=== PATIENT | female | born 2000 | race Caucasian/White ===

== ENCOUNTER 2021-02-28 15:09 | Emergency (ER) | payer SELFPAY ==
[2021-02-28 15:23] VITALS: BP 103/55; PULSE 80; TEMP 98.5; BMI 26.4
[2021-02-28] MEDS ORDERED: ACETAMINOPHEN 500 MG TABLET (FP) PO ONE (15:43)
[2021-02-28] MEDS ORDERED: ACETAMINOPHEN 500 MG TABLET (FP) ONE (16:09)
[2021-02-28 17:10] LABS: BASO % 0.2 % (0-2.0); EOS % 1.1 % (0-4.5); HEMATOCRIT 39.2 % (32.4-45.2); HEMOGLOBIN 13.5 GM/dL (10.7-15.3); LYMPH % 21.7 % (8-40); MCH 30.2 pg (25.7-33.7); MCHC 34.5 g/dl (32.0-36.0); MEAN CELL VOLUME 87.6 fl (80-96); MONO % 7.2 % (3.8-10.2); NEUT % 69.8 % (42.8-82.8); PLATELET COUNT 177 10^3/uL (134-434); RBC 4.47 M/mm3 (3.60-5.2); RDW 14.6 % (11.6-15.6); WHITE BLOOD COUNT 8.2 K/mm3 (4.0-10.0)
[2021-02-28 17:31] LABS: CALCIUM 9.1 mg/dL (8.5-10.1)
[2021-02-28 17:32] LABS: ALBUMIN 3.6 g/dl (3.4-5.0); BLOOD UREA NITROGEN 5.8 mg/dL (7-18)
[2021-02-28 17:35] LABS: CREATININE 0.7 mg/dL (0.55-1.3)
[2021-02-28 17:36] LABS: BILIRUBIN,TOTAL 0.2 mg/dL (0.2-1); TOT PROT 7.3 g/dl (6.4-8.2)
[2021-02-28 18:20] LABS: PH,URINE >= 9.0 (5.0-8.0); URINE APPEARANCE CLEAR; URINE BILIRUBIN NEGATIVE (NEGATIVE); URINE COLOR YELLOW; URINE GLUCOSE (UA) NEGATIVE (NEGATIVE); URINE KETONE NEGATIVE (NEGATIVE); URINE LEUK ESTERASE NEGATIVE (NEGATIVE); URINE NITRITE NEGATIVE (NEGATIVE); URINE PROTEIN NEGATIVE (NEGATIVE); URINE UROBILINOGEN 0.2 mg/dL (0.2-1.0)
[2021-02-28] MEDS ORDERED: AZITHROMYCIN 500 MG TABLET PO ONE (18:36)
[2021-02-28] MEDS ORDERED: cefTRIAXone SODIUM 1 GM VIAL ONE (18:55)
[2021-02-28] MEDS ORDERED: AZITHROMYCIN 250 MG TABLET ONE (18:56)
== END 2021-02-28 19:00 | disposition home or self-care (01) ==
LOC: JER 15:09
DX: O26.851 Spotting complicating pregnancy, first trimester (principal); Z3A.01 Less than 8 weeks gestation of pregnancy
CPT/HCPCS: 36415; 76815-TC; 76817-TC; 80053; 81003; 84702; 85025; 86850; 86900; 86901; 87086; 87491; 87591; 99285-25

== ENCOUNTER 2021-06-10 18:20 | Emergency (ER) | payer OTHER ==
[2021-06-10 18:42] VITALS: BP 97/51; PULSE 75; TEMP 97.2; BMI 31.2
[2021-06-10] MEDS ORDERED: SODIUM CHLORIDE 0.9% 500 ML INFUS.BAG IV ONE (19:42)
[2021-06-10] MEDS ORDERED: PYRIDOXINE HCL (B-6) 100 MG TABLET PO ONE (19:44)
[2021-06-10] MEDS ORDERED: PROMETHAZINE HCL 25 MG TABLET PO ONE (19:45)
[2021-06-10] MEDS ORDERED: MAG HYDROX/AL HYDROX/SIMETH 30 ML UNIT-DOSE CUP PO ONE (19:46)
[2021-06-10] MEDS ORDERED: ACETAMINOPHEN 500 MG TABLET (FP) PO ONE (19:53)
[2021-06-10] MEDS ORDERED: LACTATED RINGERS SOLUTION 1000 ML INFUS.BAG IV ONE (19:58)
[2021-06-10] MEDS ORDERED: ACETAMINOPHEN 325 MG TABLET (FP) ONE (20:12)
[2021-06-10] MEDS ORDERED: PROMETHAZINE HCL 25 MG/1 ML VIAL ONE (20:13)
[2021-06-10] MEDS ORDERED: MAG HYDROX/AL HYDROX/SIMETH 30 ML UNIT-DOSE CUP ONE (20:14)
[2021-06-10 20:16] LABS: BASO % 0.3 % (0-2.0); EOS % 1.6 % (0-4.5); HEMATOCRIT 38.8 % (32.4-45.2); HEMOGLOBIN 13.4 GM/dL (10.7-15.3); LYMPH % 25.4 % (8-40); MCHC 34.5 g/dl (32.0-36.0); MEAN CELL VOLUME 89.9 fl (80-96); MONO % 8.6 % (3.8-10.2); NEUT % 64.1 % (42.8-82.8); PLATELET COUNT 191 10^3/uL (134-434); RBC 4.32 M/mm3 (3.60-5.2); RDW 13.9 % (11.6-15.6)
[2021-06-10 20:18] LABS: EPI CELLS 34 /uL (0-25.1); HYALINE CASTS 3 /uL (0-3.1); URINE APPEARANCE TURBID; URINE BACTERIA 2386 /uL (0-1359); URINE BILIRUBIN NEGATIVE (NEGATIVE); URINE COLOR YELLOW; URINE GLUCOSE (UA) NEGATIVE (NEGATIVE); URINE KETONE NEGATIVE (NEGATIVE); URINE LEUK ESTERASE 1+ (NEGATIVE); URINE NITRITE NEGATIVE (NEGATIVE); URINE PROTEIN NEGATIVE (NEGATIVE); URINE RBC 7 /uL (0-23.9); URINE WBC 43 /uL (0-25.8)
[2021-06-10] MEDS ORDERED: PROMETHAZINE HCL 25 MG/1 ML VIAL IM ONE (20:21)
[2021-06-10 20:39] LABS: ALBUMIN 3.2 g/dl (3.4-5.0); BLOOD UREA NITROGEN 6.5 mg/dL (7-18); CALCIUM 8.7 mg/dL (8.5-10.1)
[2021-06-10 20:43] LABS: CREATININE 0.6 mg/dL (0.55-1.3)
[2021-06-10 20:44] LABS: BILIRUBIN,TOTAL 0.2 mg/dL (0.2-1)
[2021-06-10] MEDS ORDERED: CEPHALEXIN MONOHYDRATE 500 MG CAPSULE (UD) PO ONE ×2 (20:44→21:08)
[2021-06-10] MEDS ORDERED: PYRIDOXINE HCL (B-6) 50 MG TABLET (FP) PO ONE (20:45)
[2021-06-10] MEDS ORDERED: CEPHALEXIN MONOHYDRATE 500 MG CAPSULE (UD) ONE (21:28)
== END 2021-06-10 22:59 | disposition home or self-care (01) ==
LOC: JER 18:20
PROC: 3E023GC Introduction of Other Therapeutic Substance into Muscle, Percutaneous Approach (ICD-10-PCS; principal; 2021-06-10)
DX: R10.13 Epigastric pain (principal); R11.2 Nausea with vomiting, unspecified
CPT/HCPCS: 36415; 76705-TC; 80053; 81003; 85025; 87086; 93005; 93010; 99285-25; C9803; U0003; U0005

== ENCOUNTER 2021-08-16 14:21 | Emergency (ER) | payer OTHER ==
[2021-08-16 14:47] VITALS: TEMP 97.7; BMI 23.9
[2021-08-16] MEDS ORDERED: SODIUM CHLORIDE 0.9% 500 ML INFUS.BAG IV ONE (15:14)
[2021-08-16] MEDS ORDERED: ONDANSETRON 4 MG/2 ML VIAL IVPUSH ONE (15:14)
[2021-08-16 16:53] VITALS: BP 102/59; PULSE 65
== END 2021-08-16 17:16 | disposition home or self-care (01) ==
LOC: JER 14:21
DX: O21.9 Vomiting of pregnancy, unspecified (principal); Z3A.38 38 weeks gestation of pregnancy
CPT/HCPCS: 99283-25

== ENCOUNTER 2022-08-21 19:51 | Emergency (ER) | payer OTHER ==
[2022-08-21 20:04] VITALS: BMI 27.4
[2022-08-21 20:38] LABS: PH,URINE 7.5 (5.0-8.0); URINE APPEARANCE TURBID; URINE BILIRUBIN NEGATIVE (NEGATIVE); URINE COLOR YELLOW; URINE GLUCOSE (UA) NEGATIVE (NEGATIVE); URINE KETONE NEGATIVE (NEGATIVE); URINE LEUK ESTERASE NEGATIVE (NEGATIVE); URINE NITRITE NEGATIVE (NEGATIVE); URINE PROTEIN NEGATIVE (NEGATIVE); URINE UROBILINOGEN 0.2 mg/dL (0.2-1.0)
[2022-08-21 23:46] LABS: BASO % 0.9 % (0-2.0); EOS % 1.7 % (0-4.5); HEMATOCRIT 35.5 % (32.4-45.2); HEMOGLOBIN 12.5 GM/dL (10.7-15.3); LYMPH % 30.9 % (8-40); MCH 31.4 pg (25.7-33.7); MCHC 35.2 g/dl (32.0-36.0); MEAN CELL VOLUME 89.4 fl (80-96); MEAN PLT VOLUME 10.4 fl (7.5-11.1); MONO % 7.5 % (3.8-10.2); PLATELET COUNT 198 10^3/uL (134-434); RBC 3.98 M/mm3 (3.60-5.2); RDW 14.2 % (11.6-15.6); WHITE BLOOD COUNT 7.9 K/mm3 (4.0-10.0)
[2022-08-22 00:21] LABS: ALBUMIN 3.1 g/dl (3.4-5.0); CALCIUM 9.1 mg/dL (8.5-10.1)
[2022-08-22 00:24] LABS: CREATININE 0.6 mg/dL (0.55-1.3)
[2022-08-22 00:26] LABS: BILIRUBIN,TOTAL 0.2 mg/dL (0.2-1); TOT PROT 6.6 g/dl (6.4-8.2)
[2022-08-22] MEDS ORDERED: ACETAMINOPHEN 325 MG TABLET (FP) PO ONE (00:47)
[2022-08-22 01:04] VITALS: BP 113/65; PULSE 63; RESP 17; TEMP 98.1
== END 2022-08-22 01:24 | disposition home or self-care (01) ==
LOC: JER 19:51
DX: O99.612 Diseases of the digestive system complicating pregnancy, second trimester (principal); R10.9 Unspecified abdominal pain; Z3A.19 19 weeks gestation of pregnancy
CPT/HCPCS: 36415; 76775-TC; 76815-TC; 80053; 81003; 85025; 87086; 99284-25

== ENCOUNTER 2023-11-25 10:03 | Emergency (ER) | payer OTHER ==
[2023-11-25 10:08] VITALS: BP 108/70; PULSE 64; RESP 18; TEMP 97.3; BMI 27.6
[2023-11-25 11:33] LABS: EPI CELLS 16 /uL (0-25.1); HYALINE CASTS 0 /uL (0-3.1); PH,URINE 7.5 (5.0-8.0); URINE APPEARANCE CLEAR; URINE BACTERIA 69 /uL (0-1359); URINE BILIRUBIN NEGATIVE (NEGATIVE); URINE COLOR YELLOW; URINE GLUCOSE (UA) NEGATIVE (NEGATIVE); URINE KETONE NEGATIVE (NEGATIVE); URINE LEUK ESTERASE TRACE (NEGATIVE); URINE NITRITE NEGATIVE (NEGATIVE); URINE PROTEIN NEGATIVE (NEGATIVE); URINE RBC 12 /uL (0-23.9); URINE UROBILINOGEN 0.2 mg/dL (0.2-1.0); URINE WBC 17 /uL (0-25.8)
[2023-11-25] MEDS ORDERED: ACETAMINOPHEN 325 MG TABLET (FP) ONE (11:40)
[2023-11-25] MEDS: ACETAMINOPHEN 500 MG TABLET (FP) PO ONE (11:42)
[2023-11-25 12:31] LABS: BASO % 0.7 % (0-2.0); EOS % 2.4 % (0-4.5); HEMATOCRIT 38.8 % (32.4-45.2); HEMOGLOBIN 13.2 GM/dL (10.7-15.3); LYMPH % 33.2 % (8-40); MCH 30.6 pg (25.7-33.7); MCHC 34.1 g/dl (32.0-36.0); MEAN CELL VOLUME 89.7 fl (80-96); MEAN PLT VOLUME 10.2 fl (7.5-11.1); MONO % 7.6 % (3.8-10.2); NEUT % 56.1 % (42.8-82.8); PLATELET COUNT 189 10^3/uL (134-434); RBC 4.33 M/mm3 (3.60-5.2); RDW 14.7 % (11.6-15.6); WHITE BLOOD COUNT 5.8 K/mm3 (4.0-10.0)
[2023-11-25 12:54] LABS: POTASSIUM 4.2 mmol/L (3.5-5.1)
[2023-11-25 12:57] LABS: CALCIUM 9.7 mg/dL (8.5-10.1)
[2023-11-25 12:58] LABS: ALBUMIN 3.8 g/dl (3.4-5.0)
[2023-11-25 13:00] LABS: BLOOD UREA NITROGEN 10.2 mg/dL (7-18)
[2023-11-25 13:01] LABS: CREATININE 0.8 mg/dL (0.55-1.3)
[2023-11-25 13:02] LABS: BILIRUBIN,TOTAL 0.4 mg/dL (0.2-1)
[2023-11-25] MEDS ORDERED: CEPHALEXIN MONOHYDRATE 500 MG CAPSULE (UD) ONE (17:04)
[2023-11-25] MEDS: CEPHALEXIN MONOHYDRATE 500 MG CAPSULE (UD) PO ONE (17:06)
[2023-11-25] MEDS ORDERED: cefTRIAXone SODIUM 1 GM VIAL ONE (18:34)
[2023-11-25] MEDS ORDERED: DOXYCYCLINE HYCLATE 100 MG CAPSULE PO ONE (18:34)
[2023-11-25] MEDS ORDERED: LIDOCAINE HCL 1%, 10 MG/ML (20ML VIAL) ONE (18:35)
[2023-11-25] MEDS: DOXYCYCLINE MONOHYDRATE 25 MG/5 ML SUSPENSION PO ONE (18:59)
[2023-11-25] MEDS: AZITHROMYCIN 500 MG TABLET PO ONE (19:18)
[2023-11-25] MEDS ORDERED: AZITHROMYCIN 500 MG TABLET ONE (19:19)
== END 2023-11-25 19:25 | disposition home or self-care (01) ==
LOC: JER 10:03
DX: N39.0 Urinary tract infection, site not specified (principal); N72 Inflammatory disease of cervix uteri; R30.0 Dysuria; R39.15 Urgency of urination; R10.2 Pelvic and perineal pain; R11.0 Nausea; R68.83 Chills (without fever); R10.30 Lower abdominal pain, unspecified
CPT/HCPCS: 36415; 74177-TC; 76830-TC; 80053; 81003; 84703; 85025; 87086; 87491; 87591; 87661; 99285-25; Q9967